=== PATIENT | female | born 1970 | race Caucasian/White ===

== ENCOUNTER 2020-11-11 13:47 | Inpatient (IN) | payer OTHER ==
[2020-11-11 15:15] LABS: BASOPHIL 0 % (0-2); BILIRUBIN NEGATIVE (NEGATIVE); BLOOD 3+ Ery/uL (NEGATIVE); COLOR YELLOW (YELLOW); EOSINOPHIL 0 % (0-5); GLUCOSE (U) 3+ mg/dL (NORMAL); HCT 29.6 % (37.0-47.0); HGB 9.2 g/dl (12.5-16.0); LEUKOCYTES TRACE Leu/uL (NEGATIVE); MCH 25.5 pg (25.0-31.0); MCHC 31.1 g/dL (32.0-36.0); MONOCYTE 3.6 % (0-12); MPV 10.9 fL (6.0-9.5); NEUTROPHIL 82.5 % (41-80); NITRITE NEGATIVE (NEGATIVE); NRBC 0; PLT 336 K/uL (150-400); PROTEIN NEGATIVE (NEGATIVE); RBC 3.61 M/uL (4.20-5.40); RDW 16.6 % (11.5-14.0); SPECIFIC GRAVITY <=1.005 (1.001-1.030); UROBILINOGEN 0.2 mg/dL (0.2-1.0); WBC 5.6 K/uL (4.0-10.5); pH 5.5 (5.0-9.0)
[2020-11-11 15:19] LABS: CLARITY HAZY (CLEAR)
[2020-11-11 15:29] LABS: BACTERIA TRACE; URINARY RBC TNTC
[2020-11-11 15:30] LABS: YEAST PRESENT
[2020-11-11 15:37] LABS: BILIRUBIN - TOTAL 0.8 mg/dL (0.2-1.0); CREATININE 0.91 mg/dL (0.51-0.95); GLOBULIN (CALCULATION) 4.9 g/dL; POTASSIUM 5.4 mmol/L (3.5-5.1); TOTAL PROTEIN 7.9 g/dL (6.4-8.2)
[2020-11-11 19:17] LABS: CREATININE 0.88 mg/dL (0.51-0.95); POTASSIUM 4.5 mmol/L (3.5-5.1)
[2020-11-11 19:18] LABS: FT4 (FREE T4) 1.06 ng/dL (0.76-1.46)
[2020-11-12 04:11] LABS: HCT 25.6 % (37.0-47.0); HGB 8.3 g/dl (12.5-16.0); MCH 25.7 pg (25.0-31.0); MCHC 32.4 g/dL (32.0-36.0); MCV 79.3 fL (78.0-100.0); MPV 10.3 fL (6.0-9.5); RBC 3.23 M/uL (4.20-5.40); RDW 15.9 % (11.5-14.0)
[2020-11-12 04:16] LABS: WBC 10.8 K/uL (4.0-10.5)
[2020-11-12 04:54] LABS: CREATININE 0.74 mg/dL (0.51-0.95)
[2020-11-12 10:04] LABS: IRON % SATURATION 2.8 %SAT (20-50)
[2020-11-13] MEDS ORDERED: METFORMIN HCL500 MG PO (16:37)
[2020-11-13] MEDS ORDERED: LANTUS SOL100 UNIT/1 SC (16:37)
[2020-11-13] MEDS ORDERED: ZESTRIL5 MG PO (16:46)
[2020-11-14 07:05] LABS: CREATININE 0.74 mg/dL (0.51-0.95); POTASSIUM 4.2 mmol/L (3.5-5.1)
[2020-11-14] MEDS ORDERED: GLUCAGON EMERGEN1 MG SC (09:28)
--- NOTE | 2020-11-14 11:40 | NUR ---
PT WAS EDUCATED ON INSULIN AND HOW TO GIVE. SIGN AND SYMPTOMS OF HYPO AND HYPER. PT HAD ZOOM MEETING WITH [employer] ALSO. EDUCATION AND PAPER WORK SENT HOME WITH PATIENT.
== END 2020-11-14 11:34 | disposition home or self-care (01) | DRG 638 ==
LOC: FER 13:47 → FMS 16:58 → FICU 16:58 → FMS 11-13 09:12
PROVIDERS: Emergency Medicine; Hospitalist; ADMIT Allergy & Immunology Allergy
DX: E11.00 Type 2 diabetes mellitus with hyperosmolarity without nonketotic hyperglycemic-hyperosmolar coma (NKHHC) (principal); N39.0 Urinary tract infection, site not specified; E78.5 Hyperlipidemia, unspecified; I10 Essential (primary) hypertension; D64.9 Anemia, unspecified; K83.8 Other specified diseases of biliary tract; Z20.822 Contact with and (suspected) exposure to COVID-19; Z98.890 Other specified postprocedural states
CPT/HCPCS: 36415; 76705; 80048; 80053; 81001; 82150; 82728; 82962; 83036; 83540; 83550; 83690; 84439; 84443; 85025; 87088; J0696; J1650; J7030; U0002